=== PATIENT | female | born 1955 | race Caucasian/White ===

== ENCOUNTER 2018-05-29 21:08 | Inpatient (IN) | payer BC ==
--- NOTE | 2018-05-29 21:42 | ED PDOC ---
HPI: Trauma/Fall - HPI Time Seen by Provider: 05/29/18 21:38 Chief Complaint (Nursing): Trauma Chief Complaint (Provider): Trauma History Per: Patient History/Exam Limitations: no limitations Onset/Duration Of Symptoms: Mins Injury Occurred (Timing): Just Before Arrival Additional Complaint(s): 63 y/o female brought in by EMS for evaluation of left knee pain s/p slip and fall, onset prior to arrival. Patient reports she was in her work office building when she accidentally slipped on a newly waxed/polished floor. Patient states she landed on her backpack that braced her fall. However, patient reports of hitting her left knee. Patient states she is unable to bend or move her left knee secondary to pain. Otherwise, patient denies any dizziness, head injury and any other pain. PMD: none provided - Fall Fall:Prior To Injury: Slipped Past Medical History Reviewed: Historical Data, Nursing Documentation, Vital Signs Vital Signs: Last Vital Signs Temp 98.1 F 05/29/18 21:11 Pulse 82 05/29/18 21:11 Resp 16 05/29/18 21:11 BP 177/90 H 05/29/18 21:11 Pulse Ox 98 05/29/18 21:11 - Medical History PMH: No Chronic Diseases - Surgical History Surgical History: No Surg Hx - Family History Family History: States: Unknown Family Hx - Allergies Allergies/Adverse Reactions: Allergies Allergy/AdvReac Type Severity Reaction Status Date / Time No Known Allergies Allergy Verified 05/29/18 21:10 Review of Systems ROS Statement: Except As Marked, All Systems Reviewed And Found Negative Genitourinary Female: Negative for: Pelvic Pain Musculoskeletal: Positive for: Leg Pain (left leg pain ). Negative for: Neck Pain, Shoulder Pain, Arm Pain, Back Pain, Hand Pain, Foot Pain Physical Exam - Reviewed Nursing Documentation Reviewed: Yes Vital Signs Reviewed: Yes - Physical Exam Appears: Positive for: Uncomfortable Extremity: Positive for: Other (No knee examination performed due to pain. ). Negative for: Normal ROM (No knee ROM or laxity test performed.) - ECG O2 Sat by Pulse Oximetry: 98 (RA) Pulse Ox Interpretation: Normal Medical Decision Making Medical Decision Making: Time: 2137 Plan: -- Knee 3 Views XR Pt fx left patella; communicated with Dr Booth- admit to Service Attending; communicated with Dr Lynch - normal preop workup; start protonix and at 0645 tomorrow, D5 Lactated Ringers Pt Admitted to Med/Surg Scribe Attestation: Documented by Lorena Garcia, acting as a scribe forKeenan Lopez PA-C. Provider Scribe Attestation: All medical record entries made by the Scribe were at my direction and personally dictated by me. I have reviewed the chart and agree that the record accurately reflects my personal performance of the history, physical exam, medical decision making, and the department course for this patient. I have also personally directed, reviewed, and agree with the discharge instructions and disposition. Disposition - Clinical Impression Clinical Impression: Knee fracture, left - Patient ED Disposition Is Patient to be Admitted: Yes Discussed With DrCorina: Jackeline Booth Comment: Discussed with Dr Lynch Doctor Will See Patient In The: Hospital Counseled Patient/Family Regarding: Studies Performed, Diagnosis - Disposition Disposition Time: 22:41 Condition: STABLE Forms: [facility] ([place]) - Pt Status Changed To: Hospital Disposition Of: Inpatient - Admit Certification Admit to Inpatient:: After my assessment, the patient will require hospitalization for at least two midnights. This is because of the severity of symptoms shown, intensity of services needed, and/or the medical risk in this patient being treated as an outpatient.
[2018-05-29] MEDS ORDERED: Pantoprazole 40 MG in Sodium Chloride 0.9% 100 ML IVPB SCH (22:30)
[2018-05-29] MEDS ORDERED: Lactated Ringer's 1,000 ML IV SCH (22:30)
[2018-05-29] MEDS ORDERED: Sodium Chloride 0.9% 1,000 ML IV SCH (23:00)
[2018-05-29 23:05] LABS: SQUAMOUS EPITHIAL < 1 /hpf (0-5); URINE BACTERIA RARE (<OCC); URINE BILIRUBIN NEGATIVE (NEGATIVE); URINE BLOOD NEGATIVE (NEGATIVE); URINE CLARITY CLEAR (Clear); URINE COLOR STRAW (YELLOW); URINE GLUCOSE (UA) NEG (NEGATIVE); URINE LEUKOCYTE ESTERASE NEG Leu/uL (Negative); URINE PROTEIN NEGATIVE (NEGATIVE); URINE UROBILINOGEN 0.2-1.0 mg/dL (0.2-1.0)
[2018-05-29 23:41] LABS: INR 0.9; PROTHROMBIN TIME 10.6 Seconds (9.8-13.1)
[2018-05-29 23:43] LABS: PARTIAL THROMBOPLASTIN TIME 35.5 Seconds (25.6-37.1)
[2018-05-29 23:46] LABS: ALB/GLOB RATIO 1.3 (1.0-2.1); ALBUMIN 4.5 g/dL (3.5-5.0); ALT/SGPT 35 U/L (9-52); AST/SGOT 24 U/L (14-36); BLOOD UREA NITROGEN 13 mg/dl (7-17); GFR NON-AFRICAN AMERICAN > 60
[2018-05-29 23:47] LABS: BASO # 0.1 K/uL (0.0-0.2); BASO % 1.5 % (0.0-2.0); EOS # 0.1 K/uL (0.0-0.7); EOS % 1.9 % (0.0-4.0); HEMOGLOBIN 16.1 g/dL (12.0-16.0); LYMPH # 0.9 K/uL (1.0-4.3); LYMPH % 17.6 % (20.0-40.0); MEAN CELL VOLUME 91.3 fl (81.0-99.0); MEAN CORPUSCULAR HEMOGLOBIN 30.7 pg (27.0-31.0); MEAN CORPUSCULAR HGB CONC 33.6 g/dL (33.0-37.0); MEAN PLATELET VOLUME 11.2 fl (7.2-11.7); MONO # 0.3 K/uL (0.0-0.8); MONO % 6.6 % (0.0-10.0); NEUT # 3.8 K/uL (1.8-7.0); NEUT % 72.4 % (50.0-75.0); NRBC % 0.1 % (0.0-0.0); RBC 5.24 Mil/uL (3.80-5.20); RED CELL DISTRIBUTION WIDTH 13.8 % (11.5-14.5); WHITE BLOOD COUNT 5.3 K/uL (4.8-10.8)
[2018-05-30] MEDS ORDERED: Morphine 4 MG/ML VIAL IVP PRN (00:15)
[2018-05-30] MEDS: Pantoprazole 40 MG in Sodium Chloride 0.9% 100 ML IVPB SCH ×5 (01:51→23:19)
[2018-05-30] MEDS: Benzocaine/Menthol (Cepacol) Lozenge PO PRN ×2 (04:12→22:20)
[2018-05-30] MEDS ORDERED: Lactated Ringer's 1,000 ML IV SCH (06:45)
[2018-05-30] MEDS ORDERED: Dextrose 5%/Lactated Ringer's 1,000 ML IV SCH (06:45)
--- NOTE | 2018-05-30 07:35 | RAD ---
Date of service: 05/29/2018 PROCEDURE: Left Knee Radiographs. HISTORY: Pain. COMPARISON: None. FINDINGS: BONES: There is a transverse fracture of the lower 3rd patella with approximately 2.3 cm of separation between fracture fragments. Superior portion of the patella is mildly retracted superiorly and the inferior, smaller fracture fragment, is retracted inferiorly. There is a superior patellar enthesophyte. JOINTS: No dislocation seen. JOINT EFFUSION: Suspected joint effusion. OTHER FINDINGS: None. IMPRESSION: Transverse fracture of the patella as above.
--- NOTE | 2018-05-30 07:37 | RAD ---
Date of service: 05/29/2018 HISTORY: pre op COMPARISON: None available. TECHNIQUE: Chest PA and lateral FINDINGS: LUNGS: No focal consolidation is seen. An azygous fissure and lobe is noted. PLEURA: No pleural effusion is identified. CARDIOVASCULAR: Heart size is within normal limits. No atherosclerotic calcification present. OSSEOUS STRUCTURES: Mild levoscoliosis of the upper thoracic spine. VISUALIZED UPPER ABDOMEN: Unremarkable. OTHER FINDINGS: None. IMPRESSION: No acute cardiopulmonary process seen.
--- NOTE | 2018-05-30 07:57 | CARD ---
APPROVED REPORT Date of service: 05/29/2018 EKG Measurement Heart [id number] <Conclusion> Normal sinus rhythm Normal ECG
--- NOTE | 2018-05-30 08:52 | CP.PCM.HP ---
<Catina Mcintyre - Last Filed: 05/30/18 11:29> History of Present Illness - History of Present Illness History of Present Illness: CC: s/p fall HPI: 63 YO Female with no sig PMHx presented to [facility] after GLF in the floor of her office. Pt slipped and fell in the floor backwards, cushioned by her backpack but hit her R knee. No LOC, no trauma to any other locations. Pt was unable to walk post fall and had sig pain in her knee. In the ER, XR of the Knee found sig for patellar fx. 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 FHx: no known FHx SHx; Denies ETOH, smoking and illicit drug use Allergies: NKDA Present on Admission - Present on Admission Any Indicators Present on Admission: No Review of Systems - Constitutional Constitutional: absent: Chills, Fever - Cardiovascular Cardiovascular: absent: Chest Pain, Dyspnea, Palpitations - Respiratory Respiratory: absent: Cough, Dyspnea - Gastrointestinal Gastrointestinal: absent: Abdominal Pain - Musculoskeletal Musculoskeletal: Joint Swelling (and knee pain ) Past Patient History - Past Medical History & Family History Past Medical History?: Yes - Past Social History Smoking Status: Never Smoked Alcohol: None Drugs: Denies - CARDIAC Hx Cardiac Disorders: No Hx Hypercholesterolemia: No Hx Hypertension: No - PULMONARY Hx Respiratory Disorders: No - NEUROLOGICAL Hx Neurological Disorder: No - HEENT Hx HEENT Problems: No - RENAL Hx Chronic Kidney Disease: No - ENDOCRINE/METABOLIC Hx Endocrine Disorders: No Hx Diabetes Mellitus Type 2: No - HEMATOLOGICAL/ONCOLOGICAL Hx Blood Disorders: No Hx AIDS: No Hx Human Immunodeficiency Virus (HIV): No - INTEGUMENTARY Hx Dermatological Problems: No - MUSCULOSKELETAL/RHEUMATOLOGICAL Hx Musculoskeletal Disorders: No Hx Falls: No - GASTROINTESTINAL Hx Gastrointestinal Disorders: No - GENITOURINARY/GYNECOLOGICAL Hx Genitourinary Disorders: No - PSYCHIATRIC Hx Psychophysiologic Disorder: No Hx Substance Use: No - SURGICAL HISTORY Hx Surgeries: Yes Other/Comment: 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 absent: Wheezes - Cardiovascular Exam Cardiovascular Exam: REGULAR RHYTHM, +S1, +S2 - GI/Abdominal Exam GI & Abdominal Exam: Normal Bowel Sounds, Soft. absent: Tenderness - Neurological Exam Neurological exam: Alert Results - Vital Signs Recent Vital Signs: Last Vital Signs Temp 98.9 F 05/30/18 08:37 Pulse 83 05/30/18 08:37 Resp 20 05/30/18 08:37 BP 157/90 H 05/30/18 08:37 Pulse Ox 95 05/30/18 08:37 - Labs Result Diagrams: 05/29/18 23:25 05/29/18 23:25 Labs: Laboratory Results - last 24 hr 05/29/18 05/29/18 05/29/18 22:55 23:25 23:25 WBC 5.3 RBC 5.24 H Hgb 16.1 H Hct 47.9 H MCV 91.3 MCH 30.7 MCHC 33.6 RDW 13.8 Plt Count 206 MPV 11.2 Neut % (Auto) 72.4 Lymph % (Auto) 17.6 L [place] % (Auto) 6.6 Eos % (Auto) 1.9 Baso % (Auto) 1.5 Neut # (Auto) 3.8 Lymph # (Auto) 0.9 L [place] # (Auto) 0.3 Eos # (Auto) 0.1 Baso # (Auto) 0.1 PT INR APTT Sodium 141 Potassium 4.2 Chloride 107 Carbon Dioxide 25 Anion Gap 13 BUN 13 Creatinine 0.6 L Est GFR ( Amer) > 60 Est GFR (Non-Af Amer) > 60 Random Glucose 105 Calcium 9.0 Total Bilirubin 0.4 AST 24 ALT 35 Alkaline Phosphatase 80 Total Protein 8.0 Albumin 4.5 Globulin 3.4 Albumin/Globulin Ratio 1.3 Urine Color Straw Urine Clarity Clear Urine pH 6.0 Ur Specific [place] 1.010 Urine Protein Negative Urine Glucose (UA) Neg Urine Ketones Negative Urine Blood Negative Urine Nitrate Negative Urine Bilirubin Negative Urine Urobilinogen 0.2-1.0 Ur Leukocyte Esterase Neg Urine RBC (Auto) 3 Urine Microscopic WBC 1 Ur Squamous Epith Cells < 1 Urine Bacteria Rare 05/29/18 23:25 WBC RBC Hgb Hct MCV MCH MCHC RDW Plt Count MPV Neut % (Auto) Lymph % (Auto) [place] % (Auto) Eos % (Auto) Baso % (Auto) Neut # (Auto) Lymph # (Auto) [place] # (Auto) Eos # (Auto) Baso # (Auto) PT 10.6 INR 0.9 APTT 35.5 Sodium Potassium Chloride Carbon Dioxide Anion Gap BUN Creatinine Est GFR ( Amer) Est GFR (Non-Af Amer) Random Glucose Calcium Total Bilirubin AST ALT Alkaline Phosphatase Total Protein Albumin Globulin Albumin/Globulin Ratio Urine Color Urine Clarity Urine pH Ur Specific [place] Urine Protein Urine Glucose (UA) Urine Ketones Urine Blood Urine Nitrate Urine Bilirubin Urine Urobilinogen Ur Leukocyte Esterase Urine RBC (Auto) Urine Microscopic WBC Ur Squamous Epith Cells Urine Bacteria Assessment & Plan (1) Patellar fracture Status: Acute - Assessment and Plan (Free Text) Assessment: Assessment/Plan: 63 YO female with no sig PMHx is admitted for patellar fracture. Patellar fracture -XR of the Knee: transverse patellar fx R -pain management -ortho consulted, follow up recs -PT/OT on board DVT prolyx Plan as ordered <Prasad Brownlee - Last Filed: 06/03/18 10:13> Results - Vital Signs Recent Vital Signs: Last Vital Signs Temp 98.0 F 06/03/18 08:42 Pulse 68 06/03/18 08:42 Resp 19 06/03/18 08:42 BP 131/78 06/03/18 08:42 Pulse Ox 96 06/03/18 08:42 - Labs Result Diagrams: 06/02/18 05:25 06/02/18 05:25 Assessment & Plan - Assessment and Plan (Free Text) Plan: I was present during evaluation and discussed with Dr agustin zamora plans of care and mgt. Prasad Brownlee M.D.
--- NOTE | 2018-05-30 11:25 | CP.PCM.CON ---
History of Present Illness - History of Present Illness History of Present Illness: Orthopedic consult: Dr. Booth Patient is a 63 y/o female c/o L knee pain following an injury at her job yesterday. She states that as she stepped out of the elevator, she slipped on a wet surface falling with her left leg hyper flexed under her. She experienced severe pain and was unable to WB thereafter. She was brought to [facility] by ambulance for evaluation. Currently, her pain is moderate but contolled. The pain is located to the anterior aspect of her knee, is dull in quality and intermittent. The pain is worsened with WB, and movement. The pain is alleviated with rest. There is associated swelling and bruising. She denies radiation of pain/numbness/tingling. She also denies CP/SOB/N/V/D/fever/dysuria/melena. Review of Systems - Review of Systems All systems: reviewed and no additional remarkable complaints except Review of Systems: as per HPI Past Patient History - Past Medical History & Family History Past Medical History?: Yes Past Family History: Reviewed and not pertinent - Past Social History Smoking Status: Never Smoked Alcohol: None Drugs: Denies - CARDIAC Hx Cardiac Disorders: No Hx Hypercholesterolemia: No Hx Hypertension: No - PULMONARY Hx Respiratory Disorders: No - NEUROLOGICAL Hx Neurological Disorder: No - HEENT Hx HEENT Problems: No - RENAL Hx Chronic Kidney Disease: No - ENDOCRINE/METABOLIC Hx Endocrine Disorders: No Hx Diabetes Mellitus Type 2: No - HEMATOLOGICAL/ONCOLOGICAL Hx Blood Disorders: No Hx AIDS: No Hx Human Immunodeficiency Virus (HIV): No - INTEGUMENTARY Hx Dermatological Problems: No - MUSCULOSKELETAL/RHEUMATOLOGICAL Hx Musculoskeletal Disorders: No Hx Falls: No - GASTROINTESTINAL Hx Gastrointestinal Disorders: No - GENITOURINARY/GYNECOLOGICAL Hx Genitourinary Disorders: No - PSYCHIATRIC Hx Psychophysiologic Disorder: No Hx Substance Use: No - SURGICAL HISTORY Hx Surgeries: Yes Other/Comment: 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 - ANESTHESIA Hx Anesthesia: Yes Hx Anesthesia Reactions: No Meds Allergies/Adverse Reactions: Allergies Allergy/AdvReac Type Severity Reaction Status Date / Time No Known Allergies Allergy Verified 05/29/18 21:10 - Medications Medications: Current Medications Acetaminophen (Tylenol 325mg Tab) 650 mg PO Q4 PRN PRN Reason: Pain, Mild (1-3) Benzocaine/Menthol (Cepacol Sore Throat) 1 himanshu PO Q3 PRN PRN Reason: Sore Throat Last Admin: 05/30/18 04:12 Dose: 1 himanshu Pantoprazole Sodium 40 mg/ (Sodium Chloride) 100 mls @ 250 mls/hr IVPB Q5H [facility] Last Admin: 05/30/18 08:37 Dose: 250 mls/hr Sodium Chloride (Sodium Chloride 0.9%) 1,000 mls @ 250 mls/hr IV .Q4H [facility] Stop: 05/30/18 22:58 Last Admin: 05/30/18 00:28 Dose: 250 mls/hr Dextrose/Lactated Ringer's (Dextrose 5%/Lactated Ringer's) 1,000 mls @ 250 mls/hr IV .Q4H [facility] Stop: 05/31/18 00:18 Last Admin: 05/30/18 08:39 Dose: 250 mls/hr Morphine Sulfate (Morphine) 4 mg IVP Q4 PRN PRN Reason: Pain, moderate (4-7) Physical Exam - Constitutional Appears: Well, No Acute Distress - Head Exam Head Exam: ATRAUMATIC, NORMOCEPHALIC - Eye Exam Eye Exam: EOMI, Normal appearance, PERRL - ENT Exam ENT Exam: Mucous Membranes Moist - Respiratory Exam Respiratory Exam: NORMAL BREATHING PATTERN - GI/Abdominal Exam GI & Abdominal Exam: Soft. absent: Tenderness - Extremities Exam Additional comments: L knee: knee immobilizer in place moderate swelling, anterior ecchymosis no lesions, no erythema sensation intact SP/DP/TN motor intact EHL/FHL/TA/G pedal pulse intact calves soft NT b/l Results - Vital Signs Recent Vital Signs: Last Vital Signs Temp 98.9 F 05/30/18 08:37 Pulse 83 05/30/18 08:37 Resp 20 05/30/18 08:37 BP 157/90 H 05/30/18 08:37 Pulse Ox 95 05/30/18 08:37 - Labs Result Diagrams: 05/29/18 23:25 05/29/18 23:25 Labs: Laboratory Results - last 24 hr 05/29/18 05/29/18 05/29/18 22:55 23:25 23:25 WBC 5.3 RBC 5.24 H Hgb 16.1 H Hct 47.9 H MCV 91.3 MCH 30.7 MCHC 33.6 RDW 13.8 Plt Count 206 MPV 11.2 Neut % (Auto) 72.4 Lymph % (Auto) 17.6 L [place] % (Auto) 6.6 Eos % (Auto) 1.9 Baso % (Auto) 1.5 Neut # (Auto) 3.8 Lymph # (Auto) 0.9 L [place] # (Auto) 0.3 Eos # (Auto) 0.1 Baso # (Auto) 0.1 PT INR APTT Sodium 141 Potassium 4.2 Chloride 107 Carbon Dioxide 25 Anion Gap 13 BUN 13 Creatinine 0.6 L Est GFR ( Amer) > 60 Est GFR (Non-Af Amer) > 60 Random Glucose 105 Calcium 9.0 Total Bilirubin 0.4 AST 24 ALT 35 Alkaline Phosphatase 80 Total Protein 8.0 Albumin 4.5 Globulin 3.4 Albumin/Globulin Ratio 1.3 Urine Color Straw Urine Clarity Clear Urine pH 6.0 Ur Specific [place] 1.010 Urine Protein Negative Urine Glucose (UA) Neg Urine Ketones Negative Urine Blood Negative Urine Nitrate Negative Urine Bilirubin Negative Urine Urobilinogen 0.2-1.0 Ur Leukocyte Esterase Neg Urine RBC (Auto) 3 Urine Microscopic WBC 1 Ur Squamous Epith Cells < 1 Urine Bacteria Rare 05/29/18 23:25 WBC RBC Hgb Hct MCV MCH MCHC RDW Plt Count MPV Neut % (Auto) Lymph % (Auto) [place] % (Auto) Eos % (Auto) Baso % (Auto) Neut # (Auto) Lymph # (Auto) [place] # (Auto) Eos # (Auto) Baso # (Auto) PT 10.6 INR 0.9 APTT 35.5 Sodium Potassium Chloride Carbon Dioxide Anion Gap BUN Creatinine Est GFR ( Amer) Est GFR (Non-Af Amer) Random Glucose Calcium Total Bilirubin AST ALT Alkaline Phosphatase Total Protein Albumin Globulin Albumin/Globulin Ratio Urine Color Urine Clarity Urine pH Ur Specific [place] Urine Protein Urine Glucose (UA) Urine Ketones Urine Blood Urine Nitrate Urine Bilirubin Urine Urobilinogen Ur Leukocyte Esterase Urine RBC (Auto) Urine Microscopic WBC Ur Squamous Epith Cells Urine Bacteria - Impressions Impression: Accession No. : [id number] Patient Name / ID : SWETHA MANNING / [id number] Exam Date : 05/29/2018 21:39:00 ( Approved ) Study Comment : Sex / Age : F / 63Y Creator : Warren Washburn MD Dictator : Warren Washburn MD Corrosion Engineer : [employer] Advisor : Warren Washburn MD Approver2 : Report Date : 05/30/2018 07:32:15 My Comment : Date of service: 05/29/2018 PROCEDURE: Left Knee Radiographs. HISTORY: Pain. COMPARISON: None. FINDINGS: BONES: There is a transverse fracture of the lower 3rd patella with approximately 2.3 cm of separation between fracture fragments. Superior portion of the patella is mildly retracted superiorly and the inferior, smaller fracture fragment, is retracted inferiorly. There is a superior patellar enthesophyte. JOINTS: No dislocation seen. JOINT EFFUSION: Suspected joint effusion. OTHER FINDINGS: None. IMPRESSION: Transverse fracture of the patella as above. Assessment & Plan (1) Patellar fracture Assessment and Plan: -Dr. Booth recommends surgical management with L patella ORIF -maintain knee immobilizer -NWB LLE -medical clearance -NPO -above d/w Dr. Booth in agreement Status: Acute - Date & Time Date: 05/30/18 Time: 10:00
[2018-05-30] MEDS: Dextrose 5%/Lactated Ringer's 1,000 ML IV SCH ×2 (12:55→22:23)
[2018-05-30] MEDS ORDERED: Neostigmine 1:1000 (1 mg/ml) Inj ONE (13:26)
[2018-05-30] MEDS ORDERED: Lidocaine 1% 5ml Abboject ONE (13:26)
[2018-05-30] MEDS ORDERED: Lidocaine 4% (Laryng-O-Jet) Kit MM ONE (13:26)
[2018-05-30] MEDS ORDERED: Rocuronium 10 mg/ml (5 ml) ONE (13:26)
[2018-05-30] MEDS ORDERED: Midazolam 2 MG/2 ML VIAL ONE (13:26)
[2018-05-30] MEDS ORDERED: Propofol 10 mg/ml Inj (20 ML) ONE (13:26)
[2018-05-30] MEDS ORDERED: Succinylcholine Chloride 20 mg/ml Syr (5 ml) IV ONE (13:27)
[2018-05-30] MEDS ORDERED: Phenylephrine 10 mg/ml Inj ONE (13:32)
[2018-05-30] MEDS ORDERED: Bacitracin Ointment 30 GM TUBE ONE (14:01)
[2018-05-30] MEDS ORDERED: Bupivacaine 0.5% Inj(30mL) ONE (14:02)
[2018-05-30] MEDS ORDERED: Sodium Chloride 0.9% 0 ML IV ONE (14:02)
[2018-05-30] MEDS ORDERED: EPINEPHrine 1 mg/ml (1:1000) Inj ONE ×2 (14:02→15:52)
[2018-05-30] MEDS ORDERED: Lactated Ringer's 1,000 ML IV ONE ×2 (14:35→16:10)
[2018-05-30] MEDS ORDERED: Bupivacaine HCl 0.25% PF (30 ml) Inj ONE (15:51)
[2018-05-30] MEDS ORDERED: Liquid Adhesive TOP ONE (16:10)
[2018-05-30] MEDS ORDERED: HYDROmorphone 0.5 mg/0.5 ml ISec IVP PRN (16:34)
--- NOTE | 2018-05-30 16:41 | PCM.ANESB3 ---
Femoral Nerve Block - Femoral Nerve Block Date of Procedure: 05/30/18 Anesthesiologist: Dr. Velasquez Pre-Procedure Diagnosis: S/P ORIF and repair of left patellar fracture Post-Procedure Diagnosis: S/P ORIF and repair of left patellar fracture Procedure Performed: Femoral Nerve Block Left - Procedure Femoral Nerve Block: The procedure was explained to the patient that it is for the post-operative pain management. Consent was obtained after a thorough discussion with the patient regarding the benefits and possible complications of local anesthetic block of the femoral nerve at the inguinal crease area. The patient was brought to the operating room and standard monitors were applied. Time-out was held with the circulating nurse to confirm the correct surgery and the appropriate block. After the surgery while still under general anesthesia, patient was placed in supine position with fully extended lower extremities and the left groin exposed. The femoral artery was then carefully palpated. The ultrasound transducer was then applied to this area in the transverse plane and the femoral nerve was visualized lateral to the femoral artery and underneath the fascia iliaca. After thorough identification, the inguinal crease area was prepped with Chloraprep solution. At this point, a #22 gauge Stimuplex 2-inch needle was inserted immediately lateral to the femoral artery pulse at the inguinal crease and advanced perpendicularly. The needle was inserted to the ultrasound transducer in-plane towards the femoral nerve in a [id number] direction. Needle advancement was performed carefully under direct ultrasound visualization. Nerve stimulator was used and twitch of the quadriceps muscle was obtained at current of 0.3MA. After negative aspiration, 5cc of 0.25% bupivacaine with 1:200,000 epinephrine was injected and this was followed with 25cc of 0.25% bupivacaine with 1:200,000 epinephrine. Under ultrasound guidance the local anesthetics were observed spreading below fascia iliaca and around the femoral nerve. The needle was removed intact and sterile dressing was applied. The patient had stable vital signs, was conscious and in no apparent distress. The patient tolerated the femoral nerve block well with stable vital signs and was awaken from anesthesia. Then transported to PACU in stable condition.
--- NOTE | 2018-05-30 17:35 | PCM.SURG1 ---
Surgeon's Initial Post Op Note - Surgeon's Notes Surgeon: Jackeline Booth MD Immigration Coordinator: Leidy Jarquin PA-C Type of Anesthesia: General Endo Pre-Operative Diagnosis: Left knee patella fx/Patella tendon rupture Operative Findings: see op report Post-Operative Diagnosis: same as -pre-op dx Operation Performed: Left knee open patella tendon repair Specimen/Specimens Removed: none Estimated Blood Loss: EBL {In ML}: 75 Date of Surgery/Procedure: 05/30/18 Time of Surgery/Procedure: 14:30
[2018-05-30] MEDS ORDERED: ceFAZolin 1 GM in Sodium Chloride 0.9% 100 ML IVPB ONE (20:30)
[2018-05-31] MEDS: Pantoprazole 40 MG in Sodium Chloride 0.9% 100 ML IVPB SCH ×3 (00:35→06:31)
--- NOTE | 2018-05-31 02:03 | CON ---
DATE: 05/30/2018 CHIEF COMPLAINT: Left knee patella fracture. HISTORY OF PRESENT ILLNESS: The patient is a 63-year-old female who had a mechanical fall landing onto her left knee. The patient presented to the emergency room with difficulty bearing weight and unable to extend her leg. The patient underwent x-rays, which showed hematoma and an inferior pole of the fracture which was fragmented. The patient was admitted and denied any loss of consciousness and denies pain to any of the extremities. PHYSICAL EXAMINATION: EXTREMITIES: Examination of the patient's left knee, the skin is intact. The patient is unable to straight leg raise and extend against gravity with extensive hematoma. The rest of the exam was limited secondary to pain. She was neurovascularly intact distally. IMAGING: X-ray of the patient's left knee showing inferior pole of the patella fracture which was fragmented. TREATMENT: I explained to the patient due to inability to extend the knee and complete displaced fracture, I recommended open repair versus ORIF of the fracture. The patient was admitted, underwent clearance and was taken to the OR for fixation. Jackeline Booth MD
[2018-05-31] MEDS ORDERED: ceFAZolin 1 GM in Sodium Chloride 0.9% 100 ML IVPB ONE (02:30)
[2018-05-31] MEDS: Lactated Ringer's 1,000 ML IV SCH ×2 (02:37→22:00)
--- NOTE | 2018-05-31 04:41 | OP ---
PROCEDURE DATE: 05/30/2018 ATTENDING PHYSICIAN: Jackeline Booth MD HEAD CHARGER: Leidy Jarquin PA-C PREOPERATIVE DIAGNOSES: 1. Left knee inferior pole patella fracture. 2. Left knee patella tendon rupture. POSTOPERATIVE DIAGNOSES: 1. Left knee inferior pole patella fracture. 2. Left knee patella tendon rupture. PROCEDURES: 1. Left knee open debridement of the patella fracture, soft tissue and patella tendon. 2. Patella tendon repair. 3. Excision of the patella fracture fragment. TYPE OF ANESTHESIA: General. ESTIMATED BLOOD LOSS: 30 mL. SPECIMEN: None. COMPLICATIONS: None. HISTORY: The patient is a 63-year-old female who had a mechanical fall, landing on the left knee. The patient presented to the emergency room with complete displacement and comminuted inferior pole of the patella fracture. The patient was admitted and taken to the operating room for surgical fixation. She was unable to extend her knee and bear weight. I had reviewed the risks and benefits of the surgery with the patient in detail. These risks include but are not limited to bleeding, infection, nerve vessel damage, continued pain, stiffness, failure of repair, nonunion, blood clots, limb loss among others. The patient is fully comprehended the risks and benefits and opted to proceed. DESCRIPTION OF PROCEDURE: The patient was brought into the preop holding area. A laterality sheet was completed confirming the patient's left knee to be the correct operative site. Informed consent was signed. The patient was taken to the operating room table, underwent general anesthesia. A padded tourniquet was applied to the patient's left thigh. Left knee was draped and prepped with standard sterile manner. First, a time-out was completed confirming left knee to be the correct operative site. Left knee was draped and prepped in a standard sterile manner. Using an Esmarch, the extremity was exsanguinated, and tourniquet was inflated to 300 mmHg. Using a 10-blade, a midline incision was made from the tibial tubercle extending to the superior pole of the patella. Skin dissection was taken down. There was extensive hematoma. The fracture site was exposed and found to be severely comminuted. Using rongeur, curettes and pulse lavage, extensive soft tissue and bone debridement was performed. Loose ossicles of the bone were removed, and inferior pole of the patella was excised. For fixation, first we debrided the degenerative and torn edges of the patella tendon. For fixation, two #5 FiberWire sutures were used to run in a Brimson stitch manner, starting from distal to proximal. Then using a 2.0 drill bit, three drill holes were made in the patella, and the suture was passed using a suture passer. With knee in extension, the sutures were tied in the superior pole of the patella. There was also a retinacular tear which was sutured using #2 FiberWire. Finally, the knee was taken to range of motion and was found to be stable until 60 degrees of flexion without any excessive stress on repair. Next, the wound was copiously irrigated. Soft tissue and bone debris was removed and closed in a standard fashion. A sterile dressing was applied. The tourniquet was deflated. The patient was placed in a knee immobilizer. Postoperative instructions included weightbearing as tolerated with knee in strict extension. There were no complications of surgery. Leidy Jarquin is a certified physician agency sales management assistant who was present for the entirety of the case as her participation was crucial in patient positioning, retraction of critical neurovascular structure, fracture reduction and successful completion of the surgery. Jackeline Booth MD
[2018-05-31 06:58] LABS: BASO % 0.7 % (0.0-2.0); HEMOGLOBIN 13.9 g/dL (12.0-16.0); LYMPH # 1.1 K/uL (1.0-4.3); LYMPH % 18.5 % (20.0-40.0); MEAN CELL VOLUME 91.3 fl (81.0-99.0); MEAN CORPUSCULAR HEMOGLOBIN 30.8 pg (27.0-31.0); MEAN CORPUSCULAR HGB CONC 33.7 g/dL (33.0-37.0); MEAN PLATELET VOLUME 10.7 fl (7.2-11.7); MONO # 0.7 K/uL (0.0-0.8); MONO % 12.3 % (0.0-10.0); NEUT # 4.1 K/uL (1.8-7.0); NEUT % 68.5 % (50.0-75.0); RBC 4.52 Mil/uL (3.80-5.20); RED CELL DISTRIBUTION WIDTH 13.5 % (11.5-14.5)
[2018-05-31 07:04] LABS: BLOOD UREA NITROGEN 13 mg/dl (7-17); CALCIUM 8.2 mg/dL (8.4-10.2); GFR NON-AFRICAN AMERICAN > 60
[2018-05-31] MEDS: Enoxaparin 40 mg Syringe SC SCH (10:03)
[2018-05-31] MEDS ORDERED: Potassium Chloride 20 mEq ER Tab PO ONE (10:24)
--- NOTE | 2018-05-31 12:42 | CP.PCM.PN ---
Subjective - Date & Time of Evaluation Date of Evaluation: 05/31/18 Time of Evaluation: 12:38 - Subjective Subjective: Patient states pain is well controlled. Denies CP/SOB/dizziness. Objective - Vital Signs/Intake and Output Vital Signs (last 24 hours): Temp Pulse Resp BP Pulse Ox 97.4 F L 95 H 20 142/77 95 05/31/18 08:38 05/31/18 09:20 05/31/18 08:38 05/31/18 08:38 05/31/18 09:20 - Medications Medications: Current Medications Acetaminophen (Tylenol 325mg Tab) 650 mg PO Q4 PRN PRN Reason: Pain, Mild (1-3) Benzocaine/Menthol (Cepacol Sore Throat) 1 himanshu PO Q3 PRN PRN Reason: Sore Throat Last Admin: 05/30/18 22:20 Dose: 1 himanshu Enoxaparin Sodium (Lovenox) 40 mg SC DAILY [facility]; Protocol Last Admin: 05/31/18 10:03 Dose: 40 mg Lactated Ringer's (Lactated Ringer's) 1,000 mls @ 100 mls/hr IV .Q10H [facility] Last Admin: 05/31/18 02:37 Dose: 100 mls/hr Morphine Sulfate (Morphine) 4 mg IVP Q4 PRN PRN Reason: Pain, moderate (4-7) Pantoprazole Sodium (Protonix Ec Tab) 40 mg PO DAILY [facility] - Labs Labs: 05/31/18 05:55 05/31/18 05:55 PT 10.6 Seconds (9.8-13.1) 05/29/18 23:25 INR 0.9 05/29/18 23:25 APTT 35.5 Seconds (25.6-37.1) 05/29/18 23:25 - Extremities Exam Additional comments: LLE: +ROM ankle/toes, sensation intact Assessment and Plan (1) Patellar fracture Assessment & Plan: POD#1 s/p ORIF patella orthopedically stable knee immob at all times lovenox to continue after discharge PT/OT d/w Dr. Booth, agrees with above Status: Acute
[2018-05-31] MEDS: Benzocaine/Menthol (Cepacol) Lozenge PO PRN (20:54)
[2018-06-01] MEDS: Lactated Ringer's 1,000 ML IV SCH (02:25)
[2018-06-01 07:40] LABS: HEMOGLOBIN 13.5 g/dL (12.0-16.0); MEAN CORPUSCULAR HEMOGLOBIN 31.1 pg (27.0-31.0); MEAN CORPUSCULAR HGB CONC 34.1 g/dL (33.0-37.0); RBC 4.33 Mil/uL (3.80-5.20); RED CELL DISTRIBUTION WIDTH 13.7 % (11.5-14.5); WHITE BLOOD COUNT 6.3 K/uL (4.8-10.8)
[2018-06-01] MEDS: Pantoprazole 40 mg EC Tab PO SCH (08:13)
[2018-06-01] MEDS: Enoxaparin 40 mg Syringe SC SCH (08:14)
[2018-06-02] MEDS: Lactated Ringer's 1,000 ML IV SCH (04:30)
[2018-06-02 07:05] LABS: HEMOGLOBIN 13.7 g/dL (12.0-16.0); MEAN CELL VOLUME 91.7 fl (81.0-99.0); MEAN CORPUSCULAR HEMOGLOBIN 30.4 pg (27.0-31.0); MEAN CORPUSCULAR HGB CONC 33.2 g/dL (33.0-37.0); RBC 4.5 Mil/uL (3.80-5.20); RED CELL DISTRIBUTION WIDTH 13.6 % (11.5-14.5)
[2018-06-02 07:28] LABS: ALB/GLOB RATIO 1.2 (1.0-2.1); ALBUMIN 3.8 g/dL (3.5-5.0); ALT/SGPT 31 U/L (9-52); AST/SGOT 24 U/L (14-36); BLOOD UREA NITROGEN 14 mg/dl (7-17); CALCIUM 8.6 mg/dL (8.4-10.2); GFR NON-AFRICAN AMERICAN > 60
[2018-06-02] MEDS: Enoxaparin 40 mg Syringe SC SCH (11:13)
[2018-06-02] MEDS: Pantoprazole 40 mg EC Tab PO SCH (11:13)
--- NOTE | 2018-06-02 17:20 | CP.PCM.PN ---
Subjective - Date & Time of Evaluation Date of Evaluation: 06/02/18 Time of Evaluation: 12:00 - Subjective Subjective: patient seen and examined at bedside tolerating po well pain well controlled no other complaints offered at this time Objective - Vital Signs/Intake and Output Vital Signs (last 24 hours): Temp Pulse Resp BP Pulse Ox 98.4 F 60 20 121/73 99 06/02/18 16:30 06/02/18 16:30 06/02/18 16:30 06/02/18 16:30 06/02/18 16:30 - Medications Medications: Current Medications Acetaminophen (Tylenol 325mg Tab) 650 mg PO Q4 PRN PRN Reason: Pain, Mild (1-3) Acetaminophen (Tylenol 325mg Tab) 650 mg PO Q6 PRN PRN Reason: Fever >100.4 F Last Admin: 05/31/18 16:37 Dose: 650 mg Benzocaine/Menthol (Cepacol Sore Throat) 1 himanshu PO Q3 PRN PRN Reason: Sore Throat Last Admin: 05/31/18 20:54 Dose: 1 himanshu Enoxaparin Sodium (Lovenox) 40 mg SC DAILY [facility]; Protocol Last Admin: 06/02/18 11:13 Dose: 40 mg Fluticasone Propionate (Flonase) 1 spr HIRO BID [facility] Last Admin: 06/02/18 13:28 Dose: 1 spr Lactated Ringer's (Lactated Ringer's) 1,000 mls @ 100 mls/hr IV .Q10H [facility] Last Admin: 06/02/18 04:30 Dose: Not Given Morphine Sulfate (Morphine) 4 mg IVP Q4 PRN PRN Reason: Pain, moderate (4-7) Pantoprazole Sodium (Protonix Ec Tab) 40 mg PO DAILY [facility] Last Admin: 06/02/18 11:13 Dose: 40 mg - Labs Labs: 06/02/18 05:25 06/02/18 05:25 PT 10.6 Seconds (9.8-13.1) 05/29/18 23:25 INR 0.9 05/29/18 23:25 APTT 35.5 Seconds (25.6-37.1) 05/29/18 23:25 - Constitutional Appears: Non-toxic, No Acute Distress - Head Exam Head Exam: NORMAL INSPECTION - Eye Exam Eye Exam: Normal appearance - Cardiovascular Exam Cardiovascular Exam: +S1, +S2 - GI/Abdominal Exam GI & Abdominal Exam: Soft - Neurological Exam Neurological Exam: Alert, Awake - Psychiatric Exam Psychiatric exam: Normal Affect, Normal Mood - Skin Skin Exam: Normal Color, Warm Assessment and Plan (1) Patellar fracture Status: Acute - Assessment and Plan (Free Text) Assessment: cont meds cont tx pt ortho following dispo planning pain control prn rest of plan as ordered
[2018-06-03] MEDS: Lactated Ringer's 1,000 ML IV SCH (00:45)
--- NOTE | 2018-06-03 09:46 | CP.PCM.PN ---
Subjective - Date & Time of Evaluation Date of Evaluation: 06/03/18 Time of Evaluation: 09:00 - Subjective Subjective: Patient states pain is controlled. She is doing well with PT. Denies numbness/tingling, denies CP/SOB/dizziness. She says her leg still feels weak. Objective - Vital Signs/Intake and Output Vital Signs (last 24 hours): Temp Pulse Resp BP Pulse Ox 98.0 F 68 19 131/78 96 06/03/18 08:42 06/03/18 08:42 06/03/18 08:42 06/03/18 08:42 06/03/18 08:42 - Medications Medications: Current Medications Acetaminophen (Tylenol 325mg Tab) 650 mg PO Q4 PRN PRN Reason: Pain, Mild (1-3) Acetaminophen (Tylenol 325mg Tab) 650 mg PO Q6 PRN PRN Reason: Fever >100.4 F Last Admin: 05/31/18 16:37 Dose: 650 mg Benzocaine/Menthol (Cepacol Sore Throat) 1 himanshu PO Q3 PRN PRN Reason: Sore Throat Last Admin: 05/31/18 20:54 Dose: 1 himanshu Fluticasone Propionate (Flonase) 1 spr HIRO BID [facility] Last Admin: 06/02/18 17:52 Dose: 1 spr Pantoprazole Sodium (Protonix Ec Tab) 40 mg PO DAILY [facility] Last Admin: 06/02/18 11:13 Dose: 40 mg - Labs Labs: 06/02/18 05:25 06/02/18 05:25 PT 10.6 Seconds (9.8-13.1) 05/29/18 23:25 INR 0.9 05/29/18 23:25 APTT 35.5 Seconds (25.6-37.1) 05/29/18 23:25 - Extremities Exam Additional comments: Dresssing change: incision intact, scant sang drainage, moderate swelling, ecchymosis to knee and lower leg. Calf soft NT neg homans. +ROM ankle/toes, sensation intact, +DP/PT pulses Assessment and Plan (1) Patellar fracture Assessment & Plan: POD#4 s/p ORIF left patellar fx orthopedically stable continue lovenox x 1 month WBAT, do not remove knee immobilizer f/u Dr. Booth in office approx 10 days call for appt d/w Dr. Booth, agrees with above Status: Acute
[2018-06-03] MEDS: Enoxaparin 40 mg Syringe SC SCH (09:54)
[2018-06-03] MEDS: Pantoprazole 40 mg EC Tab PO SCH (09:54)
--- NOTE | 2018-06-03 10:15 | CP.PCM.PN ---
Subjective - Date & Time of Evaluation Date of Evaluation: 05/31/18 Time of Evaluation: 11:00 - Subjective Subjective: Patient remains stable post op Has minimal pain Able to do PT Objective - Vital Signs/Intake and Output Vital Signs (last 24 hours): Temp Pulse Resp BP Pulse Ox 98.0 F 68 19 131/78 96 06/03/18 08:42 06/03/18 08:42 06/03/18 08:42 06/03/18 08:42 06/03/18 08:42 - Medications Medications: Current Medications Acetaminophen (Tylenol 325mg Tab) 650 mg PO Q4 PRN PRN Reason: Pain, Mild (1-3) Acetaminophen (Tylenol 325mg Tab) 650 mg PO Q6 PRN PRN Reason: Fever >100.4 F Last Admin: 05/31/18 16:37 Dose: 650 mg Benzocaine/Menthol (Cepacol Sore Throat) 1 himanshu PO Q3 PRN PRN Reason: Sore Throat Last Admin: 05/31/18 20:54 Dose: 1 himanshu Enoxaparin Sodium (Lovenox) 40 mg SC DAILY [facility]; Protocol Fluticasone Propionate (Flonase) 1 spr HIRO BID [facility] Last Admin: 06/03/18 09:54 Dose: 1 spr Pantoprazole Sodium (Protonix Ec Tab) 40 mg PO DAILY [facility] Last Admin: 06/03/18 09:54 Dose: 40 mg - Labs Labs: 06/02/18 05:25 06/02/18 05:25 PT 10.6 Seconds (9.8-13.1) 05/29/18 23:25 INR 0.9 05/29/18 23:25 APTT 35.5 Seconds (25.6-37.1) 05/29/18 23:25 - Head Exam Head Exam: NORMAL INSPECTION - Eye Exam Eye Exam: Normal appearance - ENT Exam ENT Exam: Mucous Membranes Moist - Respiratory Exam Respiratory Exam: Clear to Ausculation Bilateral - Cardiovascular Exam Cardiovascular Exam: REGULAR RHYTHM - GI/Abdominal Exam GI & Abdominal Exam: Normal Bowel Sounds - Neurological Exam Neurological Exam: Awake, Oriented x3 Assessment and Plan (1) Patellar fracture Status: Acute (2) Gait abnormality Status: Acute - Assessment and Plan (Free Text) Plan: Cont meds Cont PT cont pain meds TCU eval
--- NOTE | 2018-06-03 10:17 | CP.PCM.PN ---
Subjective - Date & Time of Evaluation Date of Evaluation: 06/01/18 Time of Evaluation: 11:00 - Subjective Subjective: Patient remains well Has no chest pain or SOB afebrile Objective - Vital Signs/Intake and Output Vital Signs (last 24 hours): Temp Pulse Resp BP Pulse Ox 98.0 F 68 19 131/78 96 06/03/18 08:42 06/03/18 08:42 06/03/18 08:42 06/03/18 08:42 06/03/18 08:42 - Medications Medications: Current Medications Acetaminophen (Tylenol 325mg Tab) 650 mg PO Q4 PRN PRN Reason: Pain, Mild (1-3) Acetaminophen (Tylenol 325mg Tab) 650 mg PO Q6 PRN PRN Reason: Fever >100.4 F Last Admin: 05/31/18 16:37 Dose: 650 mg Benzocaine/Menthol (Cepacol Sore Throat) 1 himanshu PO Q3 PRN PRN Reason: Sore Throat Last Admin: 05/31/18 20:54 Dose: 1 himanshu Enoxaparin Sodium (Lovenox) 40 mg SC DAILY [facility]; Protocol Fluticasone Propionate (Flonase) 1 spr HIRO BID [facility] Last Admin: 06/03/18 09:54 Dose: 1 spr Pantoprazole Sodium (Protonix Ec Tab) 40 mg PO DAILY [facility] Last Admin: 06/03/18 09:54 Dose: 40 mg - Labs Labs: 06/02/18 05:25 06/02/18 05:25 PT 10.6 Seconds (9.8-13.1) 05/29/18 23:25 INR 0.9 05/29/18 23:25 APTT 35.5 Seconds (25.6-37.1) 05/29/18 23:25 - Head Exam Head Exam: NORMAL INSPECTION - Eye Exam Eye Exam: Normal appearance - ENT Exam ENT Exam: Mucous Membranes Moist - Respiratory Exam Respiratory Exam: Clear to Ausculation Bilateral - Cardiovascular Exam Cardiovascular Exam: REGULAR RHYTHM - GI/Abdominal Exam GI & Abdominal Exam: Normal Bowel Sounds - Neurological Exam Neurological Exam: Awake, Oriented x3 Assessment and Plan (1) Patellar fracture Status: Acute (2) Gait abnormality Status: Acute - Assessment and Plan (Free Text) Plan: ccont meds cont PT pain meds TCU eval
[2018-06-04] MEDS: Enoxaparin 40 mg Syringe SC SCH (08:31)
[2018-06-04] MEDS: Pantoprazole 40 mg EC Tab PO SCH (08:32)
--- NOTE | 2018-06-04 08:59 | CP.PCM.PN ---
Subjective - Date & Time of Evaluation Date of Evaluation: 06/04/18 Time of Evaluation: 07:30 - Subjective Subjective: Patient seen and examined at bedside comfortable. Pain is better controlled. Tolerated PT well yesterday, ambulating and stair training. No other complaints. Objective - Vital Signs/Intake and Output Vital Signs (last 24 hours): Temp Pulse Resp BP Pulse Ox 97.8 F 62 20 131/79 98 06/04/18 08:00 06/04/18 08:00 06/04/18 08:00 06/04/18 08:00 06/04/18 08:00 - Medications Medications: Current Medications Acetaminophen (Tylenol 325mg Tab) 650 mg PO Q4 PRN PRN Reason: Pain, Mild (1-3) Acetaminophen (Tylenol 325mg Tab) 650 mg PO Q6 PRN PRN Reason: Fever >100.4 F Last Admin: 05/31/18 16:37 Dose: 650 mg Benzocaine/Menthol (Cepacol Sore Throat) 1 himanshu PO Q3 PRN PRN Reason: Sore Throat Last Admin: 05/31/18 20:54 Dose: 1 himanshu Enoxaparin Sodium (Lovenox) 40 mg SC DAILY [facility]; Protocol Last Admin: 06/04/18 08:31 Dose: 40 mg Fluticasone Propionate (Flonase) 1 spr HIRO BID [facility] Last Admin: 06/04/18 08:32 Dose: 1 spr Pantoprazole Sodium (Protonix Ec Tab) 40 mg PO DAILY [facility] Last Admin: 06/04/18 08:32 Dose: 40 mg - Labs Labs: 06/02/18 05:25 06/02/18 05:25 PT 10.6 Seconds (9.8-13.1) 05/29/18 23:25 INR 0.9 05/29/18 23:25 APTT 35.5 Seconds (25.6-37.1) 05/29/18 23:25 - Extremities Exam Additional comments: L knee: Knee imm in place Dressings CDI sensation intact SP/DP/TN motor intact EHL/FHL/A/G pedal pulses intact calves soft NT b/l Assessment and Plan (1) Patellar fracture Assessment & Plan: POD# 5 s/p L patella ORIF -PT/OT WBAT, strict knee imm -DVT ppx -d/c planning -orthopedically stable for discharge -above d/w Dr. Booth in agreement Status: Acute
--- NOTE | 2018-06-04 11:01 | CP.PCM.PN ---
<Catina Mcintyre - Last Filed: 06/04/18 11:02> Subjective - Date & Time of Evaluation Date of Evaluation: 06/04/18 Time of Evaluation: 10:58 - Subjective Subjective: No acute overnight events. Pt seen and examined by bedside this AM Endorsing pain in L knee, better with PO pain meds Pt states that she lives two stories up, and due to her knee pain will not be able to climb the stairs to her apt. Denies chest pain, palpitations, dyspnea, n/v Objective - Vital Signs/Intake and Output Vital Signs (last 24 hours): Temp Pulse Resp BP Pulse Ox 97.8 F 62 20 131/79 98 06/04/18 08:00 06/04/18 08:00 06/04/18 08:00 06/04/18 08:00 06/04/18 08:00 - Medications Medications: Current Medications Acetaminophen (Tylenol 325mg Tab) 650 mg PO Q4 PRN PRN Reason: Pain, Mild (1-3) Acetaminophen (Tylenol 325mg Tab) 650 mg PO Q6 PRN PRN Reason: Fever >100.4 F Last Admin: 05/31/18 16:37 Dose: 650 mg Benzocaine/Menthol (Cepacol Sore Throat) 1 himanshu PO Q3 PRN PRN Reason: Sore Throat Last Admin: 05/31/18 20:54 Dose: 1 himanshu Enoxaparin Sodium (Lovenox) 40 mg SC DAILY [facility]; Protocol Last Admin: 06/04/18 08:31 Dose: 40 mg Fluticasone Propionate (Flonase) 1 spr HIRO BID [facility] Last Admin: 06/04/18 08:32 Dose: 1 spr Pantoprazole Sodium (Protonix Ec Tab) 40 mg PO DAILY [facility] Last Admin: 06/04/18 08:32 Dose: 40 mg - Labs Labs: 06/02/18 05:25 06/02/18 05:25 PT 10.6 Seconds (9.8-13.1) 05/29/18 23:25 INR 0.9 05/29/18 23:25 APTT 35.5 Seconds (25.6-37.1) 05/29/18 23:25 - Constitutional Appears: No Acute Distress - Head Exam Head Exam: NORMAL INSPECTION - Eye Exam Additional comments: R cataract - ENT Exam ENT Exam: Mucous Membranes Moist - Respiratory Exam Respiratory Exam: Clear to Ausculation Bilateral. absent: Wheezes - Cardiovascular Exam Cardiovascular Exam: REGULAR RHYTHM, +S1, +S2 - GI/Abdominal Exam GI & Abdominal Exam: Soft, Normal Bowel Sounds. absent: Tenderness - Extremities Exam Additional comments: L knee on brace, DP appreciated Full ROM of foot, moving all fingers and toes - Neurological Exam Neurological Exam: Alert, Awake Assessment and Plan (1) Patellar fracture Status: Acute - Assessment and Plan (Free Text) Assessment: Assessment/Plan: 63 YO female with no sig PMHx is admitted for patellar fracture. Patellar fracture -XR of the Knee: transverse patellar fx R -s/p Left knee open patella tendon repair on 05/30 -pain management -ortho consulted, follow up recs -PT/OT on board -pending placement for rehab, PT DVT prolyx Plan as ordered <Jensen Rose - Last Filed: 06/04/18 17:14> Objective - Vital Signs/Intake and Output Vital Signs (last 24 hours): Temp Pulse Resp BP Pulse Ox 97.6 F 64 18 144/88 97 06/04/18 16:36 06/04/18 16:36 06/04/18 16:36 06/04/18 16:36 06/04/18 16:36 - Medications Medications: Current Medications Acetaminophen (Tylenol 325mg Tab) 650 mg PO Q4 PRN PRN Reason: Pain, Mild (1-3) Acetaminophen (Tylenol 325mg Tab) 650 mg PO Q6 PRN PRN Reason: Fever >100.4 F Last Admin: 05/31/18 16:37 Dose: 650 mg Benzocaine/Menthol (Cepacol Sore Throat) 1 himanshu PO Q3 PRN PRN Reason: Sore Throat Last Admin: 05/31/18 20:54 Dose: 1 himanshu Enoxaparin Sodium (Lovenox) 40 mg SC DAILY [facility]; Protocol Last Admin: 06/04/18 08:31 Dose: 40 mg Fluticasone Propionate (Flonase) 1 spr HIRO BID [facility] Last Admin: 06/04/18 16:29 Dose: 1 spr Pantoprazole Sodium (Protonix Ec Tab) 40 mg PO DAILY [facility] Last Admin: 06/04/18 08:32 Dose: 40 mg - Labs Labs: 06/02/18 05:25 06/02/18 05:25 PT 10.6 Seconds (9.8-13.1) 05/29/18 23:25 INR 0.9 05/29/18 23:25 APTT 35.5 Seconds (25.6-37.1) 05/29/18 23:25 Assessment and Plan (1) Patellar fracture Status: Acute Attending/Attestation - Attestation I have personally seen and examined this patient.: Yes I have fully participated in the care of the patient.: Yes I have reviewed all pertinent clinical information, including history, physical exam and plan: Yes
[2018-06-05] MEDS: Enoxaparin 40 mg Syringe SC SCH (09:57)
[2018-06-05] MEDS: Pantoprazole 40 mg EC Tab PO SCH (09:57)
--- NOTE | 2018-06-05 11:21 | CP.PCM.PN ---
<Catina Mcintyre - Last Filed: 06/05/18 11:22> Subjective - Date & Time of Evaluation Date of Evaluation: 06/05/18 Time of Evaluation: 11:19 - Subjective Subjective: No acute overnight events. Pt seen and examined by bedside this AM. Pt states that she is doing well, Knee pain is improving. Pt is working with PT. Continues to endorse knee pain, better with PO pain meds Objective - Vital Signs/Intake and Output Vital Signs (last 24 hours): Temp Pulse Resp BP Pulse Ox 98.2 F 68 20 119/73 95 06/05/18 08:22 06/05/18 08:22 06/05/18 08:22 06/05/18 08:22 06/05/18 08:22 - Medications Medications: Current Medications Acetaminophen (Tylenol 325mg Tab) 650 mg PO Q4 PRN PRN Reason: Pain, Mild (1-3) Acetaminophen (Tylenol 325mg Tab) 650 mg PO Q6 PRN PRN Reason: Fever >100.4 F Last Admin: 05/31/18 16:37 Dose: 650 mg Benzocaine/Menthol (Cepacol Sore Throat) 1 himanshu PO Q3 PRN PRN Reason: Sore Throat Last Admin: 05/31/18 20:54 Dose: 1 himanshu Enoxaparin Sodium (Lovenox) 40 mg SC DAILY [facility]; Protocol Last Admin: 06/05/18 09:57 Dose: 40 mg Fluticasone Propionate (Flonase) 1 spr HIRO BID [facility] Last Admin: 06/05/18 09:56 Dose: 1 spr Pantoprazole Sodium (Protonix Ec Tab) 40 mg PO DAILY [facility] Last Admin: 06/05/18 09:57 Dose: 40 mg - Labs Labs: 06/02/18 05:25 06/02/18 05:25 PT 10.6 Seconds (9.8-13.1) 05/29/18 23:25 INR 0.9 05/29/18 23:25 APTT 35.5 Seconds (25.6-37.1) 05/29/18 23:25 - Constitutional Appears: No Acute Distress - Head Exam Head Exam: NORMAL INSPECTION - Eye Exam Eye Exam: EOMI (Catarect R eye ) - ENT Exam ENT Exam: Mucous Membranes Moist - Respiratory Exam Respiratory Exam: Clear to Ausculation Bilateral, NORMAL BREATHING PATTERN. a bsent: Wheezes, Respiratory Distress - Cardiovascular Exam Cardiovascular Exam: REGULAR RHYTHM, +S1, +S2 - GI/Abdominal Exam GI & Abdominal Exam: Soft, Normal Bowel Sounds. absent: Tenderness - Extremities Exam Extremities Exam: absent: Calf Tenderness, Pedal Edema Additional comments: L knee on brace, DP appreciated Full ROM of foot, moving all fingers and toes Assessment and Plan (1) Patellar fracture Status: Acute - Assessment and Plan (Free Text) Assessment: Assessment/Plan: 63 YO female with no sig PMHx is admitted for patellar fracture. Patellar fracture -XR of the Knee: transverse patellar fx R -s/p Left knee open patella tendon repair on 05/30 -pain management -ortho consulted, follow up recs -PT/OT on board -pending placement for rehab, PT DVT prolyx Plan as ordered <Jensen Rose - Last Filed: 06/05/18 15:17> Objective - Vital Signs/Intake and Output Vital Signs (last 24 hours): Temp Pulse Resp BP Pulse Ox 98.2 F 68 20 119/73 95 06/05/18 08:22 06/05/18 08:22 06/05/18 08:22 06/05/18 08:22 06/05/18 08:22 - Medications Medications: Current Medications Acetaminophen (Tylenol 325mg Tab) 650 mg PO Q4 PRN PRN Reason: Pain, Mild (1-3) Acetaminophen (Tylenol 325mg Tab) 650 mg PO Q6 PRN PRN Reason: Fever >100.4 F Last Admin: 05/31/18 16:37 Dose: 650 mg Benzocaine/Menthol (Cepacol Sore Throat) 1 himanshu PO Q3 PRN PRN Reason: Sore Throat Last Admin: 05/31/18 20:54 Dose: 1 himanshu Enoxaparin Sodium (Lovenox) 40 mg SC DAILY [facility]; Protocol Last Admin: 06/05/18 09:57 Dose: 40 mg Fluticasone Propionate (Flonase) 1 spr HIRO BID [facility] Last Admin: 06/05/18 09:56 Dose: 1 spr Pantoprazole Sodium (Protonix Ec Tab) 40 mg PO DAILY [facility] Last Admin: 06/05/18 09:57 Dose: 40 mg - Labs Labs: 06/02/18 05:25 06/02/18 05:25 PT 10.6 Seconds (9.8-13.1) 05/29/18 23:25 INR 0.9 05/29/18 23:25 APTT 35.5 Seconds (25.6-37.1) 05/29/18 23:25 Assessment and Plan (1) Patellar fracture Status: Acute Attending/Attestation - Attestation I have personally seen and examined this patient.: Yes I have fully participated in the care of the patient.: Yes I have reviewed all pertinent clinical information, including history, physical exam and plan: Yes
--- NOTE | 2018-06-05 13:44 | CP.PCM.PN ---
Subjective - Date & Time of Evaluation Date of Evaluation: 06/05/18 Time of Evaluation: 13:42 - Subjective Subjective: Patient complaining of continued knee pain. Denies CP/SOB/dizziness/palp. Denies numbness/tingling Objective - Vital Signs/Intake and Output Vital Signs (last 24 hours): Temp Pulse Resp BP Pulse Ox 98.2 F 68 20 119/73 95 06/05/18 08:22 06/05/18 08:22 06/05/18 08:22 06/05/18 08:22 06/05/18 08:22 - Medications Medications: Current Medications Acetaminophen (Tylenol 325mg Tab) 650 mg PO Q4 PRN PRN Reason: Pain, Mild (1-3) Acetaminophen (Tylenol 325mg Tab) 650 mg PO Q6 PRN PRN Reason: Fever >100.4 F Last Admin: 05/31/18 16:37 Dose: 650 mg Benzocaine/Menthol (Cepacol Sore Throat) 1 himanshu PO Q3 PRN PRN Reason: Sore Throat Last Admin: 05/31/18 20:54 Dose: 1 himanshu Enoxaparin Sodium (Lovenox) 40 mg SC DAILY [facility]; Protocol Last Admin: 06/05/18 09:57 Dose: 40 mg Fluticasone Propionate (Flonase) 1 spr HIRO BID [facility] Last Admin: 06/05/18 09:56 Dose: 1 spr Pantoprazole Sodium (Protonix Ec Tab) 40 mg PO DAILY [facility] Last Admin: 06/05/18 09:57 Dose: 40 mg - Labs Labs: 06/02/18 05:25 06/02/18 05:25 PT 10.6 Seconds (9.8-13.1) 05/29/18 23:25 INR 0.9 05/29/18 23:25 APTT 35.5 Seconds (25.6-37.1) 05/29/18 23:25 - Extremities Exam Additional comments: left knee: incision intact, dry, noted mod to severe ecchymosis, mod-severe knee swelling, not improved since sunday. mild lower extremity swelling as well, calf soft no palpable cords, neg homans, +DP/PT pulses sensation intact Assessment and Plan (1) Patellar fracture Assessment & Plan: POD# 6 s/p left patella ORIF due to continued swelling, will check dopplers r/o DVT and recheck labs elevation, ice, compression todd toes to thigh cont PT/OT lovenox d/w Dr. Booth, agrees with above Status: Acute
--- NOTE | 2018-06-05 15:39 | US ---
Date of service: 06/05/2018 PROCEDURE: Bilateral lower extremity venous duplex Doppler. HISTORY: leg swelling, remove knee immob, DO NOT FLEX KNEE COMPARISON: None available. TECHNIQUE: Bilateral common femoral, superficial femoral, popliteal and posterior tibial veins were evaluated. Flow was assessed with color Doppler, compressibility, assessment of phasic flow and augmentation response. FINDINGS: COMMON FEMORAL VEIN: Right CFV: Unremarkable. Left CFV: Unremarkable. SUPERFICIAL FEMORAL VEIN: Right SFV: Unremarkable. Left SFV: Unremarkable. POPLITEAL VEIN: Right Popliteal: Unremarkable. Left Popliteal: Unremarkable. POSTERIOR TIBIAL VEIN: Right PTV: Unremarkable. Left PTV: Unremarkable. OTHER FINDINGS: Prominent right inguinal region lymph node measuring 4.4 x 2.8 x 1.0 cm. IMPRESSION: No evidence of deep venous thrombosis.
[2018-06-05 19:10] LABS: HEMOGLOBIN 13.7 g/dL (12.0-16.0); MEAN CELL VOLUME 91.6 fl (81.0-99.0); MEAN CORPUSCULAR HEMOGLOBIN 30.2 pg (27.0-31.0); RBC 4.54 Mil/uL (3.80-5.20); RED CELL DISTRIBUTION WIDTH 13.5 % (11.5-14.5); WHITE BLOOD COUNT 6.2 K/uL (4.8-10.8)
[2018-06-05 19:18] LABS: BLOOD UREA NITROGEN 18 mg/dl (7-17); CALCIUM 9.4 mg/dL (8.4-10.2); GFR NON-AFRICAN AMERICAN > 60
[2018-06-06 07:07] LABS: BASO % 0.6 % (0.0-2.0); EOS # 0.1 K/uL (0.0-0.7); HEMOGLOBIN 13.4 g/dL (12.0-16.0); LYMPH # 1.4 K/uL (1.0-4.3); LYMPH % 20.9 % (20.0-40.0); MEAN CELL VOLUME 93.4 fl (81.0-99.0); MEAN CORPUSCULAR HEMOGLOBIN 30.2 pg (27.0-31.0); MEAN CORPUSCULAR HGB CONC 32.4 g/dL (33.0-37.0); MEAN PLATELET VOLUME 10.6 fl (7.2-11.7); MONO # 0.4 K/uL (0.0-0.8); MONO % 5.9 % (0.0-10.0); NEUT # 4.7 K/uL (1.8-7.0); NEUT % 70.6 % (50.0-75.0); NRBC % 0.1 % (0.0-0.0); RBC 4.44 Mil/uL (3.80-5.20); RED CELL DISTRIBUTION WIDTH 13.9 % (11.5-14.5); WHITE BLOOD COUNT 6.7 K/uL (4.8-10.8)
[2018-06-06 07:24] LABS: BLOOD UREA NITROGEN 19 mg/dl (7-17); GFR NON-AFRICAN AMERICAN > 60
[2018-06-06 08:57] VITALS: RESP 20
--- NOTE | 2018-06-06 09:28 | CP.PCM.PN ---
Subjective - Date & Time of Evaluation Date of Evaluation: 06/06/18 Time of Evaluation: 09:25 - Subjective Subjective: Patient states pain in knee is the same. No new complaints. Denies CP/SOB/dizziness. Objective - Vital Signs/Intake and Output Vital Signs (last 24 hours): Temp Pulse Resp BP Pulse Ox 99.4 F 76 20 120/71 95 06/06/18 08:57 06/06/18 08:57 06/06/18 08:57 06/06/18 08:57 06/06/18 08:57 - Medications Medications: Current Medications Acetaminophen (Tylenol 325mg Tab) 650 mg PO Q4 PRN PRN Reason: Pain, Mild (1-3) Acetaminophen (Tylenol 325mg Tab) 650 mg PO Q6 PRN PRN Reason: Fever >100.4 F Last Admin: 05/31/18 16:37 Dose: 650 mg Benzocaine/Menthol (Cepacol Sore Throat) 1 himanshu PO Q3 PRN PRN Reason: Sore Throat Last Admin: 05/31/18 20:54 Dose: 1 himanshu Docusate Sodium (Colace) 100 mg PO DAILY [facility] Enoxaparin Sodium (Lovenox) 40 mg SC DAILY [facility]; Protocol Last Admin: 06/05/18 09:57 Dose: 40 mg Fluticasone Propionate (Flonase) 1 spr HIRO BID [facility] Last Admin: 06/05/18 16:21 Dose: 1 spr Pantoprazole Sodium (Protonix Ec Tab) 40 mg PO DAILY [facility] Last Admin: 06/05/18 09:57 Dose: 40 mg - Labs Labs: 06/06/18 05:50 06/06/18 05:50 PT 10.6 Seconds (9.8-13.1) 05/29/18 23:25 INR 0.9 05/29/18 23:25 APTT 35.5 Seconds (25.6-37.1) 05/29/18 23:25 - Extremities Exam Additional comments: Left knee: +ROM ankle/toes, sensation intact, +DP/PT pulses, knee immobilizer and todd intact dopplers: no DVT BLE Assessment and Plan (1) Patellar fracture Assessment & Plan: POD#7 s/p ORIF elevation, ice knee immobilizer not to be removed WBAT PT/OT dopplers negative labs reviewed orthopedically stable for d/c f/u Dr. Booth 7-10 days upon d/c, call for appt d/w Dr. Booth, agrees with above Status: Acute
[2018-06-06] MEDS: Enoxaparin 40 mg Syringe SC SCH (09:50)
[2018-06-06] MEDS: Pantoprazole 40 mg EC Tab PO SCH (09:50)
[2018-06-06 16:13] VITALS: BP 120/74; PULSE 62; TEMP 97.8; O2SAT 98
== END 2018-06-06 18:00 | disposition home or self-care (01) | DRG 489 ==
LOC: H.ER 21:08 → H.ERHOLD 22:23 → H.MEDSURG1 05-30 00:46
PROVIDERS: ADMIT Family Medicine; ATTEND Family Medicine
PROC: 0QDF0ZZ Extraction of Left Patella, Open Approach (ICD-10-PCS; 2018-05-30)
PROC: 3E0T3BZ Introduction of Anesthetic Agent into Peripheral Nerves and Plexi, Percutaneous Approach (ICD-10-PCS; 2018-05-30)
PROC: 3E0T33Z Introduction of Anti-inflammatory into Peripheral Nerves and Plexi, Percutaneous Approach (ICD-10-PCS; 2018-05-30)
PROC: 0QBF0ZZ Excision of Left Patella, Open Approach (ICD-10-PCS; principal; 2018-05-30 15:30)
PROC: 0LQR0ZZ Repair Left Knee Tendon, Open Approach (ICD-10-PCS; 2018-05-30 15:30)
PROC: F07Z9FZ Gait Training/Functional Ambulation Treatment using Assistive, Adaptive, Supportive or Protective Equipment (ICD-10-PCS; 2018-05-31)
DX: S82.032A Displaced transverse fracture of left patella, initial encounter for closed fracture (principal); S76.112A Strain of left quadriceps muscle, fascia and tendon, initial encounter; R26.89 Other abnormalities of gait and mobility; W01.0XXA Fall on same level from slipping, tripping and stumbling without subsequent striking against object, initial encounter; Y92.59 Other trade areas as the place of occurrence of the external cause